=== PATIENT | male | born 1955 | race Caucasian/White ===

== ENCOUNTER → 2016-12-25 | Day surgery (SDC) | payer BC ==
[~2016-12-25] MED LIST: CLARITIN10 M2 PO; FISH OIL 1,0001 EACH PO; KEFLEX500 M1 PO; LIPITOR40 MG PO; VERAMYST10 GM
--- NOTE | ~2016-12-25 | OR ---
Unit #: [id number] #: [id number] Patient: DOMINGA EDGAR [id number] [address] [place], [place] [address] [id number] MR#: [id number] NAME: DOMINGA EDGAR ROOM: Date of Procedure: 12/25/2016 Admission Date: 12/25/2016 Surgeon: Jose F Goetz M.D. : 1955 Attending Physician: Jose F Goetz M.D. Primary Care Physician: Zeeshan Fernández M.D. OPERATIVE REPORT PRIMARY CARE PHYSICIAN Zeeshan Fernández M.D. PREOPERATIVE DIAGNOSIS Colorectal cancer screening in an average-risk patient. PROCEDURE PERFORMED Colonoscopy up to cecum with excellent preparation and good visualization. POSTOPERATIVE DIAGNOSES Scant sigmoid and descending colon diverticulosis. Otherwise, normal examination up to cecum. The quality of the prep was excellent. The patient did not have any polyps. RECOMMENDATIONS Repeat colonoscopy in 10 years. SEDATION USED MAC. DESCRIPTION OF PROCEDURE Following detailed explanation of the potential risks and complications of a colonoscopy, namely perforation, bleeding, and complications related to sedation, the patient was brought to GI lab and laid in the left lateral decubitus position. A digital rectal examination was performed, which was normal. Lubricated tip of the Olympus video colonoscope was inserted through the anus and advanced under direct vision. The scope was advanced and passed up to sigmoid into descending colon. Scant small diverticula were seen in this area. The scope tip was then navigated all the way up to cecum with visualization of the ileocecal valve and the appendiceal orifice. Preparation was excellent with good visualization and photodocumentation was obtained. Successive segments of the colonic mucosa were examined upon withdrawal and appeared unremarkable. There being no polyps, mass lesions, or AVMs. Other than the scant diverticula, no other abnormalities were noted. The patient did not have any hemorrhoids at anal verge. The scope was then withdrawn. The patient returned to recovery area. He tolerated the procedure without any postprocedure complications. Dictated by... Jose F Goetz M.D. Unit #: [id number] #: [id number] Patient: DOMINGA EDGAR TWAN/servando TD: 12/25/2016 23:50 JOB #: [id number] OPERATIVE REPORT X Jose F Goetz MD PROCEDURE OPERATIVE NOTE
== END | disposition home or self-care (01) ==
LOC: COPS 09:21
DX: Z12.11 Encounter for screening for malignant neoplasm of colon (principal); K57.30 Diverticulosis of large intestine without perforation or abscess without bleeding; E78.5 Hyperlipidemia, unspecified; Z86.14 Personal history of Methicillin resistant Staphylococcus aureus infection; Z79.899 Other long term (current) drug therapy; Z96.653 Presence of artificial knee joint, bilateral; Z98.890 Other specified postprocedural states